=== PATIENT | female | born 2000 | race Two or more races ===

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

== ENCOUNTER 2024-10-17 19:26 | Emergency (ER) | payer MEDICAID, SELFPAY ==
[2024-10-17 19:50] VITALS: BP 116/74; PULSE 110; RESP 18; TEMP 38.8; O2SAT 99; BMI 31.2
--- NOTE | 2024-10-17 19:55 | XR_ITS ---
Examination: PA lateral chest 2 views Technique: Upright PA lateral chest 2 views Exam date and time: October 17, [id number] hrs. Indications: Coughing fever beginning 3 days ago Findings: Normal heart size Lungs are clear. The osseous structures are intact Impression: No active disease
--- NOTE | 2024-10-17 19:55 | PD.EDRME ---
Rapid Medical Screening Exam RME Arrival date/time: 10/17/24 19:26 24 year old female present to ED for c/o cough/fever for 3 days I have greeted and performed a focused initial assessment of this patient. A comprehensive ED assessment and evaluation of the patient, analysis of all test results, and completion of the medical decision making process will be conducted by additional ED providers. Chief Complaint: Flu Like Symptoms Time Seen by Provider: 10/17/24 19:37 Vital signs: Vital Signs Temperature 101.9 F H 10/17/24 19:50 Pulse Rate 110 H 10/17/24 19:50 Respiratory Rate 18 10/17/24 19:50 Blood Pressure 116/74 10/17/24 19:50 Pulse Oximetry (%) 99 10/17/24 19:50 Oxygen Delivery Method Room Air 10/17/24 19:50
[2024-10-17 20:24] VITALS: TEMP 38.8
[2024-10-17] MEDS: ACETAMINOPHEN 500 MG TABLET 1000 MG PO (20:24)
[2024-10-17] MEDS: IBUPROFEN TAB 400 MG TABLET 800 MG PO (20:24)
[2024-10-17] MEDS: ONDANSETRON ODT 4 MG TABRAP PO (20:24)
[2024-10-17 20:31] VITALS: PULSE 111; RESP 17; O2SAT 99
[2024-10-17] MEDS: ALBUTEROL/IPRATROPIUM (Duoneb) RT SOL 3 ML NEBU INH (20:31)
[2024-10-17 20:41] LABS: Strep A Rapid Negative (Negative)
--- NOTE | 2024-10-17 20:58 | EDNOTE_ITS ---
Upper Respiratory Inf. RME/HPI General Chief Complaint: Flu Like Symptoms Stated Complaint: COUGH,CONGESTION Time Seen by Provider: 10/17/24 19:37 Arrival date/time: 10/17/24 19:26 24 year old female present to emergency room with c/o of cough, congestion fever for 3 days, hx of asthma SEVERITY: Symptoms are described as being severe with limitations on activities of daily living CONTEXT: The patient is unable to identify any inciting events. DURATION/TIMING: The symptoms started approximately 3 days ASSOCIATED SYMPTOMS: The patient is unable to identify any other associated symptoms. MODIFYING FACTORS: The patient is unable to identify any alleviating or aggravating symptoms. PERTINENT ROS: no chest pain/shortness of breath no nausea,vomiting, diarrhea, no dizziness/headache no rash no loc/syncope episode no abd/back pain no dsyuria,urgency,frequency REVIEW OF SYSTEMS: See History of Present Illness - with the exception of those mentioned in the history of present illness, all other systems reviewed and reported as negative GENERAL: In general the patient is awake, interactive, in an emergency department gurney. HEAD/EYES/EARS/NOSE/THROAT: normo-cephalic, atraumatic, mucus membranes are moist, anicteric, palpebral conjunctiva is pink, trachea is midline. CARDIOVASCULAR: regular rate and regular rhythm, no murmurs, heart sounds are not distant, strong pulses in all four extremities that are equal and symmetric bilateral upper and lower extremities, normal capillary refill. CHEST/PULMONARY: normal chest rise and fall, good air movement, clear to auscultation bilaterally, normal inspiratory to expiratory ratios without evidence of respiratory distress. NECK: No midline/Paraspinal tenderness, no step off ROM/Strenght intact No Kernig and bruzinski sign. No trauma ABDOMEN: soft, not tender, no masses appreciated BACK: normal range of motion without pain. NEUROLOGICAL: cranio-facial features are symmetric, moves all four extremities equally without obvious limitations or weakness. EXTREMITY: no tenderness to palpation over the long bones or large joints of the bilateral upper and lower extremities, no joint swelling, no joint erythema, no signs of trauma, no unilateral leg swelling and no peripheral edema. SKIN: warm, dry, well-perfused, no jaundice, no rash, no telangiectasias or petechia. PSYCH: calm, cooperative, no evidence of psychosis or agitation RME / HPI RME / HPI Narrative: 10/17/24 19:26 24 year old female present to ED for c/o cough/fever for 3 days I have greeted and performed a focused initial assessment of this patient. A comprehensive ED assessment and evaluation of the patient, analysis of all test results, and completion of the medical decision making process will be conducted by additional ED providers. Related Data Previous Rx's ?Medication ?Instructions ?Recorded meclizine 25 mg tablet 25 mg PO TID #10 tabs 06/08/18 diphenhydramine HCl 25 mg capsule 25 mg PO Q8H PRN allergy symptoms 01/20/19 (Benadryl) #30 caps cyclobenzaprine 5 mg tablet 5 mg PO TID PRN muscle spasm #14 03/13/24 tabs acetaminophen 500 mg capsule 500 mg PO Q6H PRN fever #30 caps 10/17/24 ibuprofen 800 mg tablet (IBU) 800 mg PO TID PRN fever #30 tabs 10/17/24 prednisone 50 mg tablet 50 mg PO QDAY #5 tabs 10/17/24 Allergies Allergy/AdvReac Type Severity Reaction Status Date / Time amoxicillin Allergy Mild RASH Verified 10/17/24 19:28 Course Course Course Narrative: This? patient presents with symptoms suspicious for likely viral upper respiratory infection. Differential includes bacterial pneumonia, sinusitis, allergic rhinitis, strep, asthma . Do not suspect underlying cardiopulmonary process. I considered, but think unlikely, dangerous causes of this patient?s symptoms to include ACS, CHF or COPD exacerbations, pneumonia, pneumothorax. Patient is nontoxic appearing and not in need of emergent medical intervention. Plan: reassurance, reassessment, strep, flu, cxr over the counter medications, discharge with PCP followup Quality Measures none Orders Category Date Time Status Bedside Influenza A&B Antigen Test NOW Care 10/17/24 19:55 Completed XR chest 2V Stat Exams 10/17/24 19:55 Completed Strep A Rapid Stat Lab 10/17/24 20:01 Completed Acetaminophen Tab [Tylenol ES Tab] Med 10/17/24 19:55 Discontinued 1,000 mg PO X1 ONE Albuterol/Ipratr Rt Geraldine [Duoneb Rt Geraldine] Med 10/17/24 19:55 Discontinued 3 ml INH X1 ONE Ibuprofen Tab [Motrin Tab] Med 10/17/24 19:55 Discontinued 800 mg PO X1 ONE Ondansetron Odt [Zofran Odt] Med 10/17/24 19:56 Discontinued 4 mg PO X1 ONE predniSONE Med 10/17/24 20:56 Discontinued 60 mg PO X1 ONE Reevaluation(s) Reevaluation #1: pt is feeling better and fever improved Vital Signs Vital signs: Vital Signs Temperature 101.9 F H 10/17/24 19:50 Pulse Rate 110 H 10/17/24 19:50 Respiratory Rate 18 10/17/24 19:50 Blood Pressure 116/74 10/17/24 19:50 Pulse Oximetry (%) 99 10/17/24 19:50 Oxygen Delivery Method Room Air 10/17/24 19:50 Upper Respiratory Infection Patient data External records reviewed:: None Clinical information provided by:: patient and parent Social determinants that could affect healthcare access:: none Patient has the following chronic illnesses:: asthma How is presenting disease/condition affected by chronic disease/condition?: exacerbated by Evaluation data The following diagnostics were reviewed and interpreted by me:: lab results and radiology exam(s) Lab and/or radiology exams considered but not ordered:: none Interpretation Summary: xray: nad strep/flu negative Medications / Prescriptions Medications or Prescriptions considered but not ordered:: none Medication administrations:: Medication Administration History Discontinued Medications Acetaminophen (Acetaminophen 500 Mg Tablet) 1,000 mg PO X1 ONE Stop: 10/17/24 19:56 Last Admin: 10/17/24 20:24 Dose: 1,000 mg Documented By: AALIYAH Albuterol/Ipratropium (Albuterol/Ipratropium (Duoneb) Rt Geraldine 3 Ml Nebu) 3 ml INH X1 ONE Stop: 10/17/24 19:56 Last Admin: 10/17/24 20:31 Dose: 3 ml Documented By: CARY Ibuprofen (Ibuprofen Tab 400 Mg Tablet) 800 mg PO X1 ONE Stop: 10/17/24 19:56 Last Admin: 10/17/24 20:24 Dose: 800 mg Documented By: AALIYAH Ondansetron HCl (Ondansetron Odt 4 Mg Tabrap) 4 mg PO X1 ONE; Protocol Stop: 10/17/24 19:57 Last Admin: 10/17/24 20:24 Dose: 4 mg Documented By: AALIYAH Prednisone (Prednisone 20 Mg Tablet) 60 mg PO X1 ONE Stop: 10/17/24 20:57 as stated above Consultations Consultation(s) initiated? (list below): No Diagnosis Upper Respiratory Differential Diagnosis: upper respiratory infection, viral infection, bronchitis, influenza, pharyngitis and other (pna ) Most likely diagnosis given after review of the tests above:: URI Admission Indicated Admission indicated?: not indicated Admission Request Was there a request for admission?: No Disposition Plan Disposition Plan: Discharge Discharge Attestation Discharge Attestation: The patient and all family members were given an opportunity to ask questions and understood the discharge instructions. Discharge instructions specifically effects, indications for sooner follow up or return to the emergency department, and the expected course of current diagnosis. Patient condition: Stable Discharge Plan Plan Patient Disposition: HOME (Self Care) Health Concerns: Follow with PMD as directed Take tylenol or motrin as need Return to ED if sx worsen Prescriptions/Referrals Prescriptions/Med Rec: New ibuprofen [IBU] 800 mg tablet 800 mg PO TID PRN (Reason: fever) Qty: 30 0RF prednisone 50 mg tablet 50 mg PO QDAY Qty: 5 0RF acetaminophen 500 mg capsule 500 mg PO Q6H PRN (Reason: fever) Qty: 30 0RF No Action meclizine 25 mg tablet 25 mg PO TID Qty: 10 0RF diphenhydramine HCl [Benadryl] 25 mg capsule 25 mg PO Q8H PRN (Reason: allergy symptoms) Qty: 30 0RF cyclobenzaprine 5 mg tablet 5 mg PO TID PRN (Reason: muscle spasm) Qty: 14 0RF Referrals: Vanna Olguin [Primary Care Provider] - In 1 week Problem List Clinical Impression: URI (upper respiratory infection) Patient/Caregiver Discharge Instructions Education Materials: ED URI, Viral W/ Wheezing (Adult) Print Language: Eritre[place] Stand Alone Forms: [employer] Award Info., Patient Portal Info Letter
[2024-10-17] MEDS: predniSONE 20 MG TABLET 60 MG PO (21:04)
[2024-10-17 21:15] VITALS: PULSE 88; RESP 17; TEMP 37.2; O2SAT 99
== END 2024-10-17 21:16 | disposition home or self-care (01) ==
PROVIDERS: Physician Assistant; Emergency Provider Emergency Medicine; Referring Provider Emergency Medicine
DX: J06.9 Acute upper respiratory infection, unspecified (principal)
CPT/HCPCS: 71046; 87400; 87651; 94640; 99283; A9270; J7512; Q0162